=== PATIENT | female | born 1985 | race Two or more races ===

== ENCOUNTER 2018-01-18 09:09 | Outpatient (CLI) | payer OTHER | END 2018-01-18 09:19 | disposition home or self-care (01) | LOC: SONOGRAMA 09:09 → MAMO-SONO 10:15 | DX: E04.2 Nontoxic multinodular goiter (principal) ==

== ENCOUNTER 2020-09-22 08:45 | Outpatient (CLI) | payer OTHER | END 2020-09-22 08:48 | disposition home or self-care (01) | LOC: SONOGRAMA 08:45 | PROVIDERS: ATTEND Pathology Anatomic Pathology & Clinical Pathology | DX: E04.2 Nontoxic multinodular goiter (principal) ==

== ENCOUNTER 2025-01-11 08:30 | Outpatient (CLI) | payer OTHER ==
[~2025-01-11 08:30] MED LIST: DICLOFENAC SOD100 MG PO; NORFLEX100MG PO
== END 2025-01-11 08:32 | disposition home or self-care (01) ==
LOC: SONOGRAMA 08:30
PROVIDERS: ATTEND Pathology Anatomic Pathology & Clinical Pathology
DX: D34 Benign neoplasm of thyroid gland (principal); E07.89 Other specified disorders of thyroid; E04.2 Nontoxic multinodular goiter